=== PATIENT | male | born 1980 | race Caucasian/White ===

== ENCOUNTER 2018-07-21 08:45 | Emergency (ER) | payer SELFPAY ==
[~2018-07-21] VITALS: Ht 177.8 cm; Wt 94.0 kg
[2018-07-21 08:49] VITALS: Ht 177.8 cm; Wt 94.0 kg
[2018-07-21 09:39] VITALS: BP 141/94
== END 2018-07-21 09:39 | disposition home or self-care (01) ==
LOC: ED 08:45
DX: K01.1 Impacted teeth (principal); E11.9 Type 2 diabetes mellitus without complications